=== PATIENT | male | born 2000 | race Caucasian/White ===

== ENCOUNTER 2018-07-28 14:30 | Emergency (ER) | payer OTHER, BC ==
[2018-07-28] MEDS ORDERED: Morphine 4 MG/ML Syringe IVPUSH ONE ×2 (14:46→15:10)
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
[2018-07-28 15:05] VITALS: BP 132/89
== END 2018-07-28 15:30 ==
LOC: CC.ED 14:30
DX: S52.502A Unspecified fracture of the lower end of left radius, initial encounter for closed fracture (principal); S52.602A Unspecified fracture of lower end of left ulna, initial encounter for closed fracture; Y99.0 Civilian activity done for income or pay; Z79.899 Other long term (current) drug therapy; W23.0XXA Caught, crushed, jammed, or pinched between moving objects, initial encounter
CPT/HCPCS: 29125; 29126; 73090-LT; 96374; 99284-25; J2270